=== PATIENT | male | born 1980 | race Caucasian/White ===

== ENCOUNTER 2017-01-06 15:05 | Emergency (ER) | payer OTHER ==
[~2017-01-06] VITALS: Ht 177.8 cm; Wt 99.3 kg
[2017-01-06 15:09] VITALS: Ht 177.8 cm; Wt 99.3 kg
[2017-01-06 15:31] VITALS: TEMP 36.9
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
[2017-01-06 17:18] VITALS: BP 133/93; PULSE 117; O2SAT 93
== END 2017-01-06 17:18 | disposition home or self-care (01) ==
LOC: C.EDB 15:08 → C.EDA 17:18
DX: T76.21XA Adult sexual abuse, suspected, initial encounter (principal); Y92.143 Cell of prison as the place of occurrence of the external cause; Y07.59 Other non-family member, perpetrator of maltreatment and neglect